=== PATIENT | female | born 1975 | race American Indian/Alaskan Native ===

== ENCOUNTER 2017-10-11 17:35 | Emergency (ER) | payer BC ==
[2017-10-11] MEDS ORDERED: Alum-Mag Hydrox-Simethicone Susp (30 mL) PO STA (18:03)
[2017-10-11 18:05] VITALS: TEMP 98.4; O2SAT 99; BMI 37.9
--- NOTE | 2017-10-11 18:15 | ED PDOC ---
Arrival/HPI - General Chief Complaint: Chest Pain Time Seen by Provider: 10/11/17 17:44 Historian: Patient - History of Present Illness Narrative History of Present Illness (Text): 10/11/17 17:58 A 42 year old female, with no significant past medical history, presents to the emergency department complaining of mid- and left-sided chest pain x 4 days. Patient reports chest pain is on and off, episodes last couple minutes. Describes pain as pressure-like and sharp palpitations. Patient reports that she thinks these episodes are related to being near her menses. Denies any fever, cough, shortness of breath, and leg swelling. Denies tobacco use. Denies OCP use, recent travel, recent surgery, prolonged immobility or hx of PE No PMD 10/11/17 19:08 10/11/17 22:09 Past Medical History - Provider Review Nursing Documentation Reviewed: Yes - Infectious Disease Hx of Infectious Diseases: None - Pulmonary Hx Bronchitis: Yes - Psychiatric Hx Substance Use: No - Suicidal Assessment Feels Threatened In Home Enviroment: No Family/Social History - Physician Review Nursing Documentation Reviewed: Yes Family/Social History: No Known Family HX Smoking Status: Never Smoked Hx Alcohol Use: No Hx Substance Use: No Allergies/Home Meds Allergies/Adverse Reactions: Allergies No Known Allergies Allergy (Verified 10/11/17 17:44) Review of Systems - Physician Review All systems were reviewed & negative as marked: Yes - Review of Systems Constitutional: absent: Fatigue, Weight Change, Fevers Respiratory: absent: SOB, Cough, Sputum, Wheezing Cardiovascular: Chest Pain, Palpitations. absent: Edema Gastrointestinal: absent: Abdominal Pain, Constipation, Diarrhea, Nausea Genitourinary Female: absent: Dysuria, Frequency, Hematuria Neurological: absent: Headache, Dizziness Physical Exam Vital Signs Reviewed: Yes Vital Signs Temp Pulse Resp BP Pulse Ox 10/11/17 19:54 69 17 138/76 99 10/11/17 17:46 98.4 F 83 18 154/95 H 99 Temperature: Afebrile Blood Pressure: Hypertensive Pulse: Regular Respiratory Rate: Normal Appearance: Positive for: Well-Appearing Pain Distress: None Mental Status: Positive for: Alert and Oriented X 3 - Systems Exam Head: Present: Atraumatic, Normocephalic Pupils: Present: PERRL Extroacular Muscles: Present: EOMI Conjunctiva: Present: Normal Mouth: Present: Moist Mucous Membranes Neck: Present: Normal Range of Motion Respiratory/Chest: Present: Clear to Auscultation, Good Air Exchange. No: Respiratory Distress, Accessory Muscle Use Cardiovascular: Present: Regular Rate and Rhythm, Normal S1, S2. No: Murmurs Abdomen: Present: Normal Bowel Sounds. No: Tenderness, Distention, Peritoneal Signs Back: Present: Normal Inspection Upper Extremity: Present: Normal Inspection. No: Cyanosis, Edema Lower Extremity: Present: Normal Inspection. No: Edema Neurological: Present: GCS=15, CN II-XII Intact, Speech Normal Skin: Present: Warm, Dry, Normal Color. No: Rashes Psychiatric: Present: Alert, Oriented x 3, Normal Insight, Normal Concentration Medical Decision Making ED Course and Treatment: 10/11/17 18:02 Impression: 42 year old female with mid- and left-sided chest pain and palpitations. No acute findings on physical examination. No current pain. Plan: -- EKG -- Chest X-ray -- Angio Chest CT -- Labs -- Aspirin -- Pepcid -- Maalox -- Urine Test -- Reassess and disposition Progress Notes: EKG: Ordered, reviewed, and independently interpreted the EKG. Rate : 73 BPM Rhythm : NSR Interpretation : No ST-segment elevations or depressions, no T-wave inversions, normal intervals. Comparison : No previous EKG for comparison. 10/11/17 19:04 Cxray negative. TSH WNL. Trop negative. Chest pain more consistent with palpitations than acs. She has no cardiac risk factors- no htn, dm, tobacco use , or cocaine use and symptoms have been x 2 days. No family hx of sudden or early cardic . 10/11/17 21:46 CTA 1. There is no acute central pulmonary embolism. Evaluation of the peripheral pulmonary arteries for pulmonary embolism is suboptimal due to artifact. 2. Patchy nonspecific groundglass density is visualized bilaterally. Differential considerations include interstitial edema, atypical infection, and pneumonitis. 3. There is mild cardiomegaly. 4. There is elevation of the right hemidiaphragm Patient was informed of CT results and given copy. Will give course of antibiotics in case ground glass opacities are secondary to atypical infection. Patient was given cardiology and pulmonary follow-up - Lab Interpretations Lab Results: 10/11/17 18:25 10/11/17 18:25 Lab Results 10/11/17 18:25: Free T4 0.95, TSH 3rd Generation 1.51 10/11/17 18:25: Sodium 142, Potassium 3.9, Chloride 103, Carbon Dioxide 27, Anion Gap 16, BUN 16, Creatinine 1.2, Est GFR ( Amer) 60, Est GFR (Non- Af Amer) 49, Random Glucose 93, Calcium 9.3, Phosphorus 3.7, Magnesium 2.4 H, Total Bilirubin 0.5, AST 27, ALT 25, Alkaline Phosphatase 65, Total Creatine Kinase 412 H, CK-MB (CK-2) 1.7, CK-MB (CK-2) % Cancelled, Troponin I < 0.01, Total Protein 8.3, Albumin 4.4, Globulin 3.9, Albumin/Globulin Ratio 1.1 10/11/17 18:25: WBC 6.2, RBC 4.06, Hgb 13.3, Hct 40.1, MCV 98.8, MCH 32.8, MCHC 33.2, RDW 13.4, Plt Count 308, MPV 9.4, Gran % 46.6 L, Lymph % (Auto) 42.4 H, [place] % (Auto) 10.3 H, Eos % (Auto) 0.5 L, Baso % (Auto) 0.2, Gran # 2.90, Lymph # (Auto) 2.6, [place] # (Auto) 0.6, Eos # (Auto) 0.0, Baso # (Auto) 0.01 I have reviewed the lab results: Yes - RAD Interpretation Radiology Orders: 10/11/17 18:16 CHEST PORTABLE [RAD] Stat 10/11/17 19:18 ANGIO CHEST PE PROTOCOL [CT] Stat - Medication Orders Current Medication Orders: Discontinued Medications Al Hydrox/Mg Hydrox/Simethicone (Maalox Plus 30 Ml) 30 ml PO STAT STA Stop: 10/11/17 18:04 Last Admin: 10/11/17 18:14 Dose: 30 ml Aspirin (Aspirin Chewable) 81 mg PO STAT STA Stop: 10/11/17 18:04 Last Admin: 10/11/17 18:14 Dose: 81 mg Famotidine (Pepcid) 20 mg IVP STAT STA Stop: 10/11/17 18:04 Last Admin: 10/11/17 18:14 Dose: 20 mg IVP Administration Document 10/11/17 18:14 GMD (Rec: 10/11/17 18:14 GM [id number]) Charges for Administration # of IVP Administrations 1 - Scribe Statement The provider has reviewed the documentation as recorded by the Scribe Prema Lam Provider Scribe Attestation: All medical record entries made by the Scribe were at my direction and personally dictated by me. I have reviewed the chart and agree that the record accurately reflects my personal performance of the history, physical exam, medical decision making, and the department course for this patient. I have also personally directed, reviewed, and agree with the discharge instructions and disposition. Disposition/Present on Arrival - Present on Arrival Any Indicators Present on Arrival: No History of DVT/PE: No History of Uncontrolled Diabetes: No Urinary Catheter: No History of Decub. Ulcer: No History Surgical Site Infection Following: None - Disposition Have Diagnosis and Disposition been Completed?: Yes Diagnosis: Chest pain, Ground glass opacity present on imaging of lung, Palpitations Disposition: HOME/ ROUTINE Disposition Time: 21:50 Patient Plan: Discharge Patient Problems: Current Active Problems Problem Status Onset Chest pain Acute Ground glass opacity present on imaging of lung Acute Condition: GOOD Discharge Instructions (ExitCare): Heart Disease in Women (DC), Chest Pain (ED) Additional Instructions: Follow-up with cardiology within 2 days for holter monitor and futher evaluation. Follow-up with pulmonary. Take full course of antibiotics. Follow -up with PMD within 2 days. Return to ED if condition worsens Prescriptions: Azithromycin [Z-Carloz] 250 mg PO ASDIR #6 tab Referrals: Wellington Escobar MD [Staff Provider] - Follow up with primary Michael Rosa MD [Staff Provider] - Follow up with primary Forms: [employer] ([place])
[2017-10-11 18:33] LABS: BASO # 0.01 K/mm3 (0.0-2.0); BASO % 0.2 % (0.0-3.0); EOS % 0.5 % (1.5-5.0); GRAN # 2.9 (1.4-6.5); GRAN % 46.6 % (50.0-68.0); HEMOGLOBIN 13.3 g/dL (12.0-16.0); LYMPH # 2.6 (1.2-3.4); LYMPH % 42.4 % (22.0-35.0); MEAN CELL VOLUME 98.8 fl (80.0-105.0); MEAN CORPUSCULAR HEMOGLOBIN 32.8 pg (25.0-35.0); MEAN CORPUSCULAR HGB CONC 33.2 g/dl (31.0-37.0); MEAN PLATELET VOLUME 9.4 fl (7.0-11.0); MONO # 0.6 (0.1-0.6); MONO % 10.3 % (1.0-6.0); RBC 4.06 10^6/uL (3.5-6.1); RED CELL DISTRIBUTION WIDTH 13.4 % (11.5-14.5); WHITE BLOOD COUNT 6.2 10^3/ul (4.5-11.0)
[2017-10-11 18:44] LABS: ALB/GLOB RATIO 1.1 (1.1-1.8); ALBUMIN 4.4 g/dL (3.0-4.8); ALT/SGPT 25 U/L (7-56); AST/SGOT 27 U/L (14-36); BLOOD UREA NITROGEN 16 mg/dL (7-21); CALCIUM 9.3 mg/dL (8.4-10.5); GFR AFRICAN-AMERICAN 60; GFR NON-AFRICAN AMERICAN 49
[2017-10-11 18:57] LABS: TROPONIN I < 0.01 ng/mL
[2017-10-11 18:58] LABS: FREE T4 0.95 ng/dL (0.78-2.19)
[2017-10-11 19:10] LABS: CK-MB 1.7 ng/mL (0.0-3.6)
--- NOTE | 2017-10-11 21:44 | CT ---
EXAM: CT Angiography Chest With Intravenous Contrast EXAM DATE/TIME: 10/11/2017 7:18 PM CLINICAL HISTORY: The patient age is 42 years old and is female; Pain; Chest pain; Additional info: Chest pain, palpitations Facility exam id and description: [facility] angio chest pe protocol TECHNIQUE: Axial computed tomographic angiography images of the chest with intravenous contrast using pulmonary embolism protocol. All CT scans at this facility use one or more dose reduction techniques, viz.: automated exposure control; ma/kV adjustment per patient size (including targeted exams where dose is matched to indication; i.e. head); or iterative reconstruction technique. MIP reconstructed images were created and reviewed. Coronal and sagittal reformatted images were created and reviewed. CONTRAST: 95 mL of omni 350 administered intravenously. COMPARISON: DX - CHEST PORTABLE 2017-10-11 18:07 FINDINGS: Pulmonary arteries: There is no acute central pulmonary embolism. Evaluation of the peripheral pulmonary arteries for pulmonary embolism is suboptimal due to artifact. Aorta: There is no aneurysm or dissection of the aorta. Lungs: Patchy nonspecific groundglass density is visualized bilaterally. Differential considerations include interstitial edema, atypical infection, and pneumonitis. Otherwise, there is no confluent infiltrate. No lung mass or dominant lung nodule is visualized. Pleural space: No significant effusion. No pneumothorax. Heart: There is mild cardiomegaly. Bones/joints: Hypertrophic degenerative changes are noted within the spine. There is mild convexity of the thoracic spine to the right. Lymph nodes: No enlarged lymph nodes. Upper abdomen: There is elevation of the right hemidiaphragm. IMPRESSION: 1. There is no acute central pulmonary embolism. Evaluation of the peripheral pulmonary arteries for pulmonary embolism is suboptimal due to artifact. 2. Patchy nonspecific groundglass density is visualized bilaterally. Differential considerations include interstitial edema, atypical infection, and pneumonitis. 3. There is mild cardiomegaly. 4. There is elevation of the right hemidiaphragm.
--- NOTE | 2017-10-11 22:25 | CARD ---
APPROVED REPORT EKG Measurement Heart [id number] <Conclusion> Normal sinus rhythm Normal ECG
[2017-10-11 22:29] VITALS: BP 135/67; PULSE 72; RESP 16
--- NOTE | 2017-10-12 09:40 | RAD ---
HISTORY: chest pain COMPARISON: No prior. FINDINGS: LUNGS: No active pulmonary disease. PLEURA: No significant pleural effusion identified, no pneumothorax apparent. CARDIOVASCULAR: Normal. OSSEOUS STRUCTURES: No significant abnormalities. VISUALIZED UPPER ABDOMEN: Normal. OTHER FINDINGS: None. IMPRESSION: No active disease.
== END 2017-10-11 21:30 | disposition home or self-care (01) ==
LOC: ED 17:35
DX: R07.9 Chest pain, unspecified (principal); R00.2 Palpitations; R91.8 Other nonspecific abnormal finding of lung field
CPT/HCPCS: 71045; 71275; 80053; 82550; 82553; 83735; 84100; 84439; 84443; 84484; 85025; 93005; 96374; 99284; Q9967

== ENCOUNTER 2018-03-04 10:30 | Emergency (ER) | payer BC ==
[2018-03-04 10:31] VITALS: BMI 37.1
--- NOTE | 2018-03-04 11:29 | ED PDOC ---
Arrival/HPI - General Chief Complaint: Chest Pain Time Seen by Provider: 03/04/18 10:42 Historian: Patient - History of Present Illness Narrative History of Present Illness (Text): 03/04/18 11:00 Ginny Marr is a 42 year old female, with no significant past medical history, who presents to the Emergency department complaining of progressively worsening throbbing neck pain, radiating down to chest, started 3 days ago. Patient describes chest pain as electric in quality and feels chest pressure. Patient states she was in her usual state until a few days ago. Patient notes she took Motrin over the counter which helped alleviate symptoms briefly. Patient notes associated symptoms as trouble sleeping and palpitations. Patient notes she has previously experienced similar symptoms and visited Emergency department 6 months ago, all tests were normal but cardiomegaly was discovered. Patient denies any fever, chills, nausea, vomiting, diarrhea, urinary symptoms, back pain, headache, dizziness, or any other complaints. Time/Duration: Other (onset of 3 days ago ) Symptom Onset: Sudden Symptom Course: Unchanged Quality: Pressure (pressure in chest, electric in quality), Throbbing ( throbbing neck pain) Activities at Onset: Light Past Medical History - Provider Review Nursing Documentation Reviewed: Yes - Infectious Disease Hx of Infectious Diseases: None - Cardiac Hx Cardiac Disorders: No - Pulmonary Hx Bronchitis: Yes - Neurological Hx Neurological Disorder: No - HEENT Hx HEENT Disorder: No - Renal Hx Renal Disorder: No - Endocrine/Metabolic Hx Endocrine Disorders: No - Hematological/Oncological Hx Blood Disorders: No - Integumentary Hx Dermatological Disorder: No - Musculoskeletal/Rheumatological Hx Musculoskeletal Disorders: No - Gastrointestinal Hx Gastrointestinal Disorders: No - Genitourinary/Gynecological Hx Genitourinary Disorders: No - Psychiatric Hx Psychophysiologic Disorder: No Hx Substance Use: No - Suicidal Assessment Feels Threatened In Home Enviroment: No Family/Social History - Physician Review Nursing Documentation Reviewed: Yes Family/Social History: No Known Family HX Smoking Status: Never Smoked Hx Alcohol Use: No Hx Substance Use: No Allergies/Home Meds Allergies/Adverse Reactions: Allergies No Known Allergies Allergy (Verified 03/04/18 10:42) Home Medications: Home Meds Medication Instructions Recorded Confirmed Ibuprofen [Motrin Tab] 1 tab PO Q6 PRN 03/04/18 03/04/18 Review of Systems - Physician Review All systems were reviewed & negative as marked: Yes - Review of Systems Constitutional: Normal Eyes: Normal ENT: Normal Respiratory: Normal Cardiovascular: Chest Pain (pressure in chest, described as electric in quality) . absent: Normal Gastrointestinal: Normal. absent: Diarrhea, Nausea, Vomiting Genitourinary Female: Normal Musculoskeletal: Neck Pain (described as throbbing). absent: Normal, Back Pain Skin: Normal Neurological: Normal. absent: Headache Endocrine: Normal Hemo/Lymphatic: Normal Psychiatric: Normal Physical Exam Vital Signs Reviewed: Yes Vital Signs Pulse Resp BP Pulse Ox 03/04/18 14:21 65 18 137/88 97 03/04/18 12:30 62 16 137/90 97 Blood Pressure: Normal Pulse: Regular Respiratory Rate: Normal Appearance: Positive for: Well-Appearing, Non-Toxic Pain Distress: Mild Mental Status: Positive for: Alert and Oriented X 3 - Systems Exam Head: Present: Atraumatic, Normocephalic Pupils: Present: PERRL Extroacular Muscles: Present: EOMI Conjunctiva: Present: Normal Mouth: Present: Moist Mucous Membranes Respiratory/Chest: Present: Clear to Auscultation, Good Air Exchange. No: Respiratory Distress, Accessory Muscle Use Cardiovascular: Present: Regular Rate and Rhythm, Normal S1, S2. No: Murmurs Abdomen: No: Tenderness, Distention, Peritoneal Signs Back: Present: Normal Inspection Upper Extremity: Present: Normal Inspection. No: Cyanosis, Edema Lower Extremity: Present: Normal Inspection. No: Edema Neurological: Present: GCS=15, CN II-XII Intact, Speech Normal Skin: Present: Warm Psychiatric: Present: Alert, Oriented x 3, Normal Insight, Normal Concentration Medical Decision Making ED Course and Treatment: 03/04/18 11:00 Impression: Ginny Marr is a 42 year old female who presents to the Emergency department for throbbing neck pain, radiating to chest. Plan: -- EKG -- Labs -- X-Ray of chest -- Reassess and disposition Prior Visits: Notes and results from previous visits were reviewed. Patient was last seen in the emergency department on 10/11/17 for mid- and left-sided chest pain. Patient was discharged home and told to follow-up with cardiology within 2 days for holter monitor and further evaluation, follow-up with pulmonary, to take full course of antibiotics, follow-up with PMD within 2 days and to return to ED if condition worsens. Progress Notes: 03/04/18 11 Chest X-Ray reviewed by radiologist, shows: Report Date : 03/04/2018 14:50:17 Creator : Naren Davis MD Dictator : Naren Davis MD Personal Financial Advisor : Naren Davis MD FINDINGS: LUNGS: No active pulmonary disease. PLEURA: No significant pleural effusion identified, no pneumothorax apparent. CARDIOVASCULAR: Cardiomediastinal silhouette stably prominent. OSSEOUS STRUCTURES: No significant abnormalities. VISUALIZED UPPER ABDOMEN: Normal. OTHER FINDINGS: None. IMPRESSION: No active disease. - Lab Interpretations Lab Results: 03/04/18 11:30 03/04/18 11:30 Lab Results 03/04/18 11:30: Sodium 141, Potassium 3.8, Chloride 103, Carbon Dioxide 28, Anion Gap 14, BUN 14, Creatinine 0.9, Est GFR ( Amer) > 60, Est GFR (Non- Af Amer) > 60, Random Glucose 125 H, Calcium 9.5, Phosphorus 3.6, Magnesium 2.3 H, Total Bilirubin 0.8, AST 30, ALT 38, Alkaline Phosphatase 63, Lactate Dehydrogenase 464, Total Creatine Kinase 357 H, CK-MB (CK-2) 2.3, CK-MB (CK-2) % Cancelled, Troponin I < 0.01, Total Protein 7.9, Albumin 4.3, Globulin 3.6, Albumin/Globulin Ratio 1.2, Lipase 122 03/04/18 11:30: PT 11.7, INR 1.02, D-Dimer, Quantitative 280 03/04/18 11:30: WBC 3.8 L D, RBC 4.15, Hgb 13.5, Hct 39.6, MCV 95.4 D, MCH 32.5 , MCHC 34.1, RDW 13.2, Plt Count 272, MPV 9.3, Gran % 38.8 L, Lymph % (Auto) 50.4 H, [place] % (Auto) 8.1 H, Eos % (Auto) 2.4, Baso % (Auto) 0.3, Gran # 1.48, Lymph # (Auto) 1.9, [place] # (Auto) 0.3, Eos # (Auto) 0.1, Baso # (Auto) 0.01 - RAD Interpretation Radiology Orders: 03/04/18 11:16 CHEST PORTABLE [RAD] Stat 03/04/18 14:20 ANGIO CHEST PE PROTOCOL [CT] Stat Endband Cutter Hand: Radiologist - EKG Interpretation Interpreted by ED Physician: Yes Type: 12 lead EKG - Scribe Statement Lucero Nelson All medical record entries made by the Scribe were at my direction and personally dictated by me. I have reviewed the chart and agree that the record accurately reflects my personal performance of the history, physical exam, medical decision making, and the department course for this patient. I have also personally directed, reviewed, and agree with the discharge instructions and disposition. Disposition/Present on Arrival - Present on Arrival Any Indicators Present on Arrival: No History of DVT/PE: No History of Uncontrolled Diabetes: No Urinary Catheter: No History of Decub. Ulcer: No History Surgical Site Infection Following: None - Disposition Have Diagnosis and Disposition been Completed?: Yes Diagnosis: Muscular pain, Atypical chest pain Disposition: HOME/ ROUTINE Disposition Time: 16:16 Patient Plan: Discharge Condition: GOOD Discharge Instructions (ExitCare): Chest Pain (ED) Referrals: Magy Elias MD [Primary Care Provider] - Follow up with primary Forms: [employer] ([place])
[2018-03-04 11:45] LABS: BASO # 0.01 K/mm3 (0.0-2.0); BASO % 0.3 % (0.0-3.0); EOS # 0.1 (0.0-0.7); EOS % 2.4 % (1.5-5.0); GRAN # 1.48 (1.4-6.5); GRAN % 38.8 % (50.0-68.0); HEMOGLOBIN 13.5 g/dL (12.0-16.0); LYMPH # 1.9 (1.2-3.4); LYMPH % 50.4 % (22.0-35.0); MEAN CELL VOLUME 95.4 fl (80.0-105.0); MEAN CORPUSCULAR HEMOGLOBIN 32.5 pg (25.0-35.0); MEAN CORPUSCULAR HGB CONC 34.1 g/dl (31.0-37.0); MEAN PLATELET VOLUME 9.3 fl (7.0-11.0); MONO # 0.3 (0.1-0.6); MONO % 8.1 % (1.0-6.0); RBC 4.15 10^6/uL (3.5-6.1); RED CELL DISTRIBUTION WIDTH 13.2 % (11.5-14.5); WHITE BLOOD COUNT 3.8 10^3/ul (4.5-11.0)
[2018-03-04 11:55] LABS: ALB/GLOB RATIO 1.2 (1.1-1.8); ALBUMIN 4.3 g/dL (3.0-4.8); ALT/SGPT 38 U/L (7-56); AST/SGOT 30 U/L (14-36); BLOOD UREA NITROGEN 14 mg/dL (7-21); CALCIUM 9.5 mg/dL (8.4-10.5); GFR AFRICAN-AMERICAN > 60; GFR NON-AFRICAN AMERICAN > 60; INR 1.02; LIPASE 122 U/L (23-300)
[2018-03-04 12:06] LABS: TROPONIN I < 0.01 ng/mL
[2018-03-04 12:13] LABS: CK-MB 2.3 ng/mL (0.0-3.6)
[2018-03-04] MEDS ORDERED: DOPamine 400mg/250ml D5W 400 MG/250 ML BAG IV PRN (13:02)
[2018-03-04 14:21] VITALS: RESP 18
--- NOTE | 2018-03-04 14:44 | CARD ---
APPROVED REPORT Date of service: 03/04/2018 EKG Measurement Heart [id number] <Conclusion> Normal sinus rhythm Normal ECG
--- NOTE | 2018-03-04 14:51 | RAD ---
Date of service: 03/04/2018 HISTORY: Chest Pain COMPARISON: Chest radiograph dated 10/11/2017. FINDINGS: LUNGS: No active pulmonary disease. PLEURA: No significant pleural effusion identified, no pneumothorax apparent. CARDIOVASCULAR: Cardiomediastinal silhouette stably prominent. OSSEOUS STRUCTURES: No significant abnormalities. VISUALIZED UPPER ABDOMEN: Normal. OTHER FINDINGS: None. IMPRESSION: No active disease.
--- NOTE | 2018-03-04 15:59 | CT ---
Date of service: 03/04/2018 PROCEDURE: CT Chest with contrast (Pulmonary Angiogram) HISTORY: Positive D-Dimer, Possible PE COMPARISON: 10/11/2017 TECHNIQUE: Axial computed tomography images were obtained of the chest in the pulmonary arterial phase of enhancement. Coronal and sagittal reformatted images were created and reviewed. Intravenous contrast dose: 100 cc of Omni 350 Radiation dose: Total exam DLP = 598 mGy-cm. This CT exam was performed using one or more of the following dose reduction techniques: Automated exposure control, adjustment of the mA and/or kV according to patient size, and/or use of iterative reconstruction technique. FINDINGS: PULMONARY ARTERIES: Unremarkable. No pulmonary embolism. AORTA: No acute findings. No thoracic aortic aneurysm. LUNGS: Unremarkable. No nodule, mass or pulmonary consolidation. PLEURAL SPACES: Unremarkable. No effusion or pneumothorax. HEART: Unremarkable. No cardiomegaly. No significant pericardial effusion. LYMPH NODES: No lymphadenopathy. BONES, CHEST WALL: Unremarkable. No fracture or destructive lesion OTHER FINDINGS: Unremarkable. IMPRESSION: Unremarkable CT pulmonary angiogram. No pulmonary embolus.
[2018-03-04 16:38] VITALS: TEMP 98.1
[2018-03-04 16:39] VITALS: BP 132/90; PULSE 98; O2SAT 100
[2018-03-06 13:21] LABS: PROTHROMBIN TIME 11.7 SECONDS (9.4-12.5)
== END 2018-03-04 16:38 | disposition home or self-care (01) ==
LOC: ED 10:30
DX: R07.89 Other chest pain (principal); M79.1 Myalgia
CPT/HCPCS: 71045; 71275; 80053; 82550; 82553; 83615; 83690; 83735; 84100; 84484; 85025; 85378; 85610; 93005; 99284; Q9967